=== PATIENT | female | born 1985 | race Caucasian/White ===

== ENCOUNTER 2016-12-30 19:51 | Emergency (ER) | payer OTHER ==
[2016-12-30 20:05] VITALS: BP 114/74; PULSE 55; TEMP 97.8; BMI 27.0
--- NOTE | 2016-12-30 21:01 | PDOC ---
History of Present Illness - General Chief Complaint: Laceration Stated Complaint: LACERATION Time Seen by Provider: 12/30/16 20:11 History Source: Patient Exam Limitations: No Limitations - History of Present Illness Initial Comments: 12/30/16 20:57 31 old female presents the ED status post laceration to her left hand. Patient states was in a storage unit but was made a metal when she abraded the top of her hand causing a laceration. Patient denies limited range of motion, immunosuppression, and states is up-to-date on tetanus. Timing/Duration: reports: just prior to arrival Severity: Yes: mild Location: reports: hands Respiratory Risk Factors: reports: other Associated Symptoms: reports: change in skin texture Past History - Travel Traveled outside of the country in the last 30 days: No Close contact w/someone who was outside of country & ill: No - Past Medical History Allergies/Adverse Reactions: Allergies Allergy/AdvReac Type Severity Reaction Status Date / Time No Known Drug Allergies Allergy Verified 12/30/16 20:02 Home Medications: Ambulatory Orders NK [No Known Home Medication] 12/30/16 Anemia: No Asthma: No Cancer: No Cardiac Disorders: No CVA: No COPD: No CHF: No Dementia: No Diabetes: No GI Disorders: No Disorders: No HTN: No Hypercholesterolemia: No Liver Disease: No Suicide Attempt (Hx): No Seizures: No Thyroid Disease: No Other medical history: Pt denies - Reproductive History (#): 4 Para: 1 Cervical CA: No Dysfunctional Uterine Bleeding: No Ectopic : No Endometrial CA: No Polycystic Ovaries: No Therapeutic (s) & number: No Tubal Ligation: No Spontaneous : 1 - Immunization History Immunization Up to Date: Yes - Psycho/Social/Smoking Cessation Hx Anxiety: No Suicidal Ideation: No Smoking Status: No Smoking History: Never smoked Have you smoked in the past 12 months: No Number of Cigarettes Smoked Daily: 0 Information on smoking cessation initiated: No Hx Alcohol Use: No Drug/Substance Use Hx: No Substance Use Type: None Hx Substance Use Treatment: No Patient Lives Alone: No Lives with/in: spouse/SO Review of Systems - Review of Systems Able to Perform ROS?: Yes Integumentary: Yes: Symptoms Reported, See HPI *Physical Exam - Vital Signs Last Vital Signs Temp Pulse Resp BP Pulse Ox 97.8 F 55 L 20 114/74 99 12/30/16 20:03 12/30/16 20:03 12/30/16 20:03 12/30/16 20:03 12/30/16 20:03 - Physical Exam General Appearance: Yes: Nourished, Appropriately Dressed. No: Apparent Distress Extremity: positive: Normal Range of Motion, Other (patient with half-anand flap laceration over the dorsal aspect of left second finger at the PIP JOINT) Procedures - Laceration/Wound Repair Left Finger Wound Length: to 2.5 cm Wound Explored: clean Wound's Depth, Shape: superficial Irrigated w/ Saline: Yes Betadine Prep: Yes Anesthesia: 1% Lidocaine Amount of Anesthetic (ccs): 1 Wound Repaired With: Sutures Suture Size/Type: 4:0 Number of Sutures: 5 Sterile Dressing Applied: Yes Medical Decision Making - Medical Decision Making 12/30/16 21:00 Facial laceration over left second digit. Patient up-to-date on tetanus. Repair done without difficulty. Patient to return in 14 days for removal *DC/Admit/Observation/Transfer Diagnosis at time of Disposition: Laceration of finger of left hand Qualifiers: Encounter type: initial encounter Finger: index finger Damage to nail status: without damage Foreign body presence: without foreign body Qualified Code(s): S61.211A - Laceration without foreign body of left index finger without damage to nail, initial encounter - Discharge Dispostion Disposition: HOME Condition at time of disposition: Good - Referrals Referrals: Lilibeth Baker MD [Primary Care Provider] - - Patient Instructions Printed Discharge Instructions: DI for Laceration Repair Additional Instructions: Keep area clean and dry and change bandage every 2-3 days. Please return in 14 days for suture removal. - Post Discharge Activity
== END 2016-12-30 21:06 | disposition home or self-care (01) ==
LOC: JERFT 19:51
PROC: 0HQGXZZ Repair Left Hand Skin, External Approach (ICD-10-PCS; principal; 2016-12-30)
DX: S61.412A Laceration without foreign body of left hand, initial encounter (principal); W22.8XXA Striking against or struck by other objects, initial encounter; Y93.89 Activity, other specified; Y92.89 Other specified places as the place of occurrence of the external cause
CPT/HCPCS: 99281-25